=== PATIENT | male | born 1960 | race Caucasian/White ===

== ENCOUNTER → 2016-07-29 | Outpatient (CLI) | payer OTHER ==
[~2016-07-29] MED LIST: ADVIL200 M3 PO; PAXIL10 MG PO; PRINIVIL20 M1 PO; [UNRECOGNIZED DRUG - OTHER]
--- NOTE | ~2016-07-29 | EKG ---
PATIENT: EMMA COELHO UNIT #: [id number] Ventricular Rate: 79 BPM Atrial Rate: 79 BPM P-R Interval: 170 ms QRS Duration: 76 ms Q-T Interval: 336 ms QTC Calculation(Bezet): 385 ms P [place]: 23 degrees Calculated R [place]: 1 degrees Calculated T [place]: 33 degrees Diagnosis Line: Sinus rhythm with occasional Premature atrial Diagnosis Line: complexes Diagnosis Line: Otherwise normal ECG Diagnosis Line: No previous ECGs available Diagnosis Line: Confirmed by KRUNAL SNOW MD ([id number]) on 07/30/2016 Diagnosis Line: 6:03:31 AM INTERPRETING MD: GWENDOLYN CARRERO
== END | disposition home or self-care (01) ==
LOC: CAMB 07:39
DX: Z01.810 Encounter for preprocedural cardiovascular examination (principal); K43.9 Ventral hernia without obstruction or gangrene
CPT/HCPCS: 93005

== ENCOUNTER → 2016-08-05 | Day surgery (SDC) | payer OTHER ==
--- NOTE | ~2016-08-05 | OR ---
Unit #: [id number] #: [id number] Patient: EMMA COELHO [id number] [address] [place], [place] [address] [id number] MR#: [id number] NAME: EMMA COELHO ROOM: Date of Procedure: 08/05/2016 Admission Date: 08/05/2016 Surgeon: Cortez Suggs Jr., M.D. : 1960 Attending Physician: Cortez Suggs Jr., M.D. Referring Physician: Cortez Suggs Jr., M.D. Primary Care Physician: Danita Wylie M.D. OPERATIVE REPORT INDICATION FOR PROCEDURE The patient is a 56-year-old white male, recently presented to the office complaining of a nodular mass of the upper midline of the abdomen approximately 4 cm above the umbilicus. He was noted to have a chronic incarcerated ventral hernia and has had some pain and tenderness related to this. He is brought in this time at his request for repair of this. PREOPERATIVE DIAGNOSES Upper midline ventral hernia with incarceration. POSTOPERATIVE DIAGNOSES Upper midline ventral hernia with incarceration, noting approximately 1 to 1.5 cm defect. ANESTHESIA General with endotracheal intubation and 0.5% Marcaine with epinephrine locally. PROCEDURES PERFORMED Laparoscopic ventral hernia repair with reduction of his hernia. DESCRIPTION OF PROCEDURE The patient was positioned in supine position. After being anesthetized and intubated, he was prepped and draped in routine fashion for laparoscopic ventral hernia repair. A small 0.5 cm incision was made in the left upper abdominal wall and a 5-mm Optiview introduced in the abdomen followed by the camera. There was no evidence of any injury related to introduction of the Optiview. An additional 11-mm port was placed in the left lower quadrant abdominal wall area and a 5-mm port in the right upper and right lower quadrant abdominal wall areas. The patient was noted to have a chronic incarcerated upper midline ventral hernia with the falciform incarcerated within it. There was approximately a 1.5 cm defect to 2 cm. The falciform was taken down. The fatty tissue was removed from the hernia and this was all done with a hook cautery using a current of 20 to 30. After the area was cleaned, a 4-1/2-inch circular Ventralight mesh was tacked in 4 quadrants with Vicryl sutures soaked in antibiotic solution and placed intra-abdominally and using the Endo Close technique, brought up against the anterior abdominal wall with the needle being placed through 4 small 1 mm incisions. The defect was well covered. The mesh was tacked to the abdominal wall with absorbable tacks. After this was complete, the sutures holding it up were then lysed. The area was checked. There was no evidence of any bleeding. Unit #: [id number] #: [id number] Patient: EMMA COELHO No evidence of any problem with security of the mesh through the abdominal wall. CO2 was then expressed from the abdomen after the fascia in the larger port site was approximated using the neoClose technique. The ports were removed. There was no evidence of any bleeding from the port sites. The wounds were irrigated. After hemostasis achieved with Bovie cautery, skin edges were approximated with stainless-steel skin clips and skin stapling device. Sterile dressings were applied externally. Estimated blood loss less than 50 mL. The patient received less than 1000 mL crystalloid solution during the procedure. Sponges and instruments counts were correct x3. No drains used. No complications. The patient was taken to the recovery room with stable vital signs in satisfactory condition. Dictated by... Cortez Suggs Jr., MMati GENAO/heather TD: 08/05/2016 22:11 JOB #: [id number] OPERATIVE REPORT Page 1 of 1 X Cortez Suggs MD X PROCEDURE OPERATIVE NOTE
== END | disposition home or self-care (01) ==
LOC: CSUR 06:32
DX: K43.6 Other and unspecified ventral hernia with obstruction, without gangrene (principal); I10 Essential (primary) hypertension; K21.9 Gastro-esophageal reflux disease without esophagitis; N40.0 Benign prostatic hyperplasia without lower urinary tract symptoms; J06.9 Acute upper respiratory infection, unspecified; F41.9 Anxiety disorder, unspecified; F32.9 Major depressive disorder, single episode, unspecified; F90.2 Attention-deficit hyperactivity disorder, combined type; Z88.5 Allergy status to narcotic agent; Z79.899 Other long term (current) drug therapy; Z90.49 Acquired absence of other specified parts of digestive tract; Z98.890 Other specified postprocedural states
CPT/HCPCS: J0690; J1170; J2250; J2405; J2710; J3010